=== PATIENT | female | born 1945 | race Caucasian/White ===

== ENCOUNTER 2023-05-26 14:01 | Outpatient (CLI) | payer MEDICARE | END 2023-05-26 14:02 | disposition home or self-care (01) | LOC: CSHMRI 14:01 | PROVIDERS: ATTEND Family Medicine | DX: M47.26 Other spondylosis with radiculopathy, lumbar region (principal); M48.061 Spinal stenosis, lumbar region without neurogenic claudication; M41.86 Other forms of scoliosis, lumbar region | CPT/HCPCS: 72148 ==